=== PATIENT | female | born 1935 | race Caucasian/White ===

== ENCOUNTER 2017-12-03 08:27 | Outpatient (CLI) | payer MEDICARE ==
[2017-12-03] MEDS ORDERED: Gadobenate Dimeglumine 529 MG/1 ML (20ML VIAL) ONE (14:21)
== END 2017-12-03 08:28 | disposition home or self-care (01) ==
LOC: BICMRI 08:27
PROVIDERS: ATTEND Psychiatry & Neurology Neurology
DX: R27.0 Ataxia, unspecified (principal); I67.82 Cerebral ischemia
CPT/HCPCS: 70553; A9579

== ENCOUNTER 2018-12-14 08:39 | Inpatient (IN) | payer MEDICARE ==
[2018-12-14 10:28] LABS: #Eosinphils 0.1 thou/uL (0.0-0.7); #Lymphocytes 1.1 thou/uL (1.20-3.40); #Monocytes 0.7 thou/uL (0.11-0.59); #Neutrophils 13.1 thou/uL (1.40-6.50); %Basophils 0.1 % (0.0-1.0); %Eosinophils 0.5 % (0.0-10.0); %Lymphocytes 7.4 % (21.0-51.0); %Monocytes 4.8 % (0.0-10.0); %Neutrophils 87.3 % (42.0-75.0); Hemoglobin 10.5 g/dL (12.0-16.0); Mean Corpuscular HGB CONC 32.6 g/dL (32.0-36.0); Mean Corpuscular Volume 95.3 fL (78.0-98.0); Platelet Count 383 thou/uL (130-400); RBC Distribution Width 13.4 % (11.5-14.5); Red Blood Cell (RBC) Count 3.38 mill/uL (4.20-5.40)
--- NOTE | 2018-12-14 10:42 | RAD ---
SINGLE VIEW CHEST: HISTORY: Fall. Low oxygen saturation. COMPARISON: 11/14/2014 FINDINGS: A single view of the chest shows a normal sized cardiomediastinal silhouette. Air space opacity is s een in the left lung, consistent with left lower lobe pneumonia. No pleural effusion is seen. IMPRESSION: Left lower lobe pneumonia. POS: [facility]
[2018-12-14 10:53] LABS: ALT (SGPT) 30 U/L (8-55); AST (SGOT) 56 U/L (5-34); Alkaline Phosphatase 212 U/L (40-150); Anion Gap 16 mmol/L (10-20); BUN (Urea Nitrogen) 22 mg/dL (9.8-20.1); Bilirubin, Total 0.9 mg/dL (0.2-1.2); Calc. Creatinine Clearance 0 mL/min (70-130); Calcium 8.3 mg/dL (7.8-10.44); Carbon Dioxide 23 mmol/L (23-31); Chloride 100 mmol/L (98-107); Estimated GFR-MDRD 72; Glucose 98 mg/dL (83-110); Sodium 136 mmol/L (136-145)
[2018-12-14 10:56] LABS: Potassium 2.9 mmol/L (3.5-5.1)
[2018-12-14 11:35] LABS: Bilirubin Small (Negative); Blood, Urine Negative (Negative); Clarity CLOUDY (Clear); Glucose, Urine (Dipstick) Negative (Negative); Leukocyte Negative (Negative); Nitrite Negative (Negative); Protein, Urine (Dipstick) 100 mg/dL (Neg-Trace); Specific Gravity, Urine 1.025 (1.002-1.036)
[2018-12-14] MEDS ORDERED: Piperacillin/Tazobactam 4.5 GM VIAL ONE (11:35)
[2018-12-14] MEDS ORDERED: Azithromycin 500 MG VIAL ONE (11:36)
[2018-12-14 11:37] LABS: Bacteria/HPF None Seen HPF (None Seen); Pathc Cast-AUWi Flag 2.76 (0-2.49); Squamous Epithelial 21-50 HPF (0-3)
[2018-12-14 11:49] LABS: Hyaline Casts/LPF 0-3 HYALINE CAST LPF (0-3 Hyaline)
[2018-12-14 11:50] LABS: Manual Microscopic Reviewed? No Path Casts Seen
[2018-12-14] MEDS ORDERED: Vancomycin HCl 1 GM in Premix Bag 1 BAG IVPB SCH (12:00)
[2018-12-14] MEDS ORDERED: Pot Chloride/Pot Bicarb/Cit Ac 25 mEq Effervescent Tablet ONE (12:19)
[2018-12-14] MEDS ORDERED: Ondansetron ODT 4 MG TAB PO PRN (12:20)
[2018-12-14] MEDS ORDERED: Zolpidem Tartrate 5 MG TAB PO PRN (12:20)
--- NOTE | 2018-12-14 13:42 | HP ---
PRIMARY CARE PHYSICIAN: Dr. Satya Montague. Referred to the [facility] for sepsis. The patient was noted by caregiver to have O2 saturation in the 80s this morning. Her residential green building designer says she was short of breath last night. She has not had no cough. She had fever 3 days ago, which was diagnosed as the UTI and put on Cipro. PAST MEDICAL HISTORY: Pertinent for dyslipidemia, anxiety, depression, and Meniere disease. MEDICATIONS: 1. Atorvastatin 20 mg a day. 2. Citalopram 20 mg a day. 3. Meclizine 25 mg p.r.n. ALLERGIES: NO MEDICAL ALLERGIES. PAST SURGICAL HISTORY: 1. Hysterectomy. 2. Skin cancer on her nose, which required reconstructive surgery. FAMILY HISTORY: Multiple members on both sides of her family; mother, father, grandparents, and a sibling have coronary artery disease. The patient is . Full code status. Daughter, Eva Skaggs is surrogate decision maker. No tobacco. No alcohol. REVIEW OF SYSTEMS: GENERAL: She has fallen 3 times in the past 3 days. EYES: No double vision, blurred vision, flashing lights. EARS, NOSE, AND THROAT: No ear pain or drainage. No nasal bleeding. No trouble swallowing. No oral pain. CARDIAC: No chest pain, orthopnea, or paroxysmal nocturnal dyspnea. RESPIRATION: No cough, wheezing, or asthma. GASTROINTESTINAL: No nausea, vomiting, abdominal pain, diarrhea, or constipation. GENITOURINARY: She has a history of frequency of urination, dysuria. She has an appointment with a urologist later this week, apparently interstitial nephritis runs in the family. MUSCULOSKELETAL: No pain or swelling in her arms, legs. NEUROLOGICAL: No strokes, seizures, or focal weakness. PSYCHIATRIC: History of anxiety, depression, currently treated. SKIN: She has a contusion on her left upper arm from her fall last night. HEME/LYMPH: No tender or swollen lymph nodes in axilla, inguinal, or cervical area. No petechial or hemorrhage or hematomas noted. PHYSICAL EXAMINATION: GENERAL: She is alert, pleasant, and cooperative lady. VITAL SIGNS: Room air sat was 86%. She is now 99% on 2 L. Her blood pressure is 134/75, pulse 83, and respirations 22. HEAD, EYES, EARS, NOSE, AND THROAT: Revealed pupils are equal, round, and reactive to light. Extraocular movements are intact. Sclerae are white. Tympanic membranes clear. Nose clear. Oral mucous membranes are wet. Dental hygiene is good. NECK: Supple without jugular venous distention, adenopathy, thyromegaly, or bruits. CHEST: Clear to percussion. Right chest is clear to auscultation. Left chest has marked posterior rales from the base up to upper chest. HEART: Regular rate and rhythm. First and second heart sounds clear. No murmurs or gallops. ABDOMEN: Soft. Bowel sounds are normal. No hepatosplenomegaly. No mass. No rebound. No bruits. EXTREMITIES: Reveal no cyanosis, clubbing, or edema. Pulses; carotid, radial, femoral, and dorsalis pedis pulses intact and symmetric. SKIN: Does reveal 1 bruise on her left upper arm. Otherwise, warm, dry, and clear. LYMPHATIC SURVEY: No tender or swollen lymph nodes in axilla, inguinal cervical area. NEUROLOGICAL: Cranial nerves 2 through 12 are intact. Moves all extremities. Sensation intact. LABORATORY DATA: Chest x-ray, no cardiomegaly or CHF. She has an extensive left-sided infiltrate reviewed by me. No EKG is presented. CBC; white cell count 15.0 with absolute neutrophilia, hemoglobin 10.5, and platelet count 383,000. Urine shows scant white cells of 4.6 with a lot of epithelial cells, negative leukocyte esterase and negative nitrites, indicating no evidence of infection there. Her sodium was 136, potassium 2.9, chloride 100, CO2 of 23, BUN 22, creatinine 0.77 , AST 56, bilirubin 0.9, ALT 30, alk phos 212. Lactic acid was 1.2. ADMITTING DIAGNOSES: 1. No evidence for sepsis syndrome. 2. Left lower lung pneumonia. 3. Acute respiratory failure with hypoxemia. 4. Dyslipidemia. 5. Anxiety depression. 6. Hypokalemia. PLAN: Blood cultures have been drawn. Oxygen has been administered and the patient's O2 saturation is quite adequate on 2 L. She has been given multiple antibiotics in the emergency room including a Zithromax, vancomycin, and Zosyn for atypical outpatient community-acquired pneumonia. I think that cephalexin and azithromycin would be a much better choice. She will be continued on her atorvastatin and her citalopram, suspect she will need 3 days in the hospital. Job ID: [id number] [facility] HOSPITALDemarcus
[2018-12-14 14:54] VITALS: BMI 29.5
[2018-12-14] MEDS: cefTRIAXone\\ROCEPHIN 1 GM in Sodium Chloride 0.9% 100 ML IVPB SCH (16:05)
[2018-12-14] MEDS: Citalopram 20 MG TAB PO SCH (20:50)
[2018-12-14] MEDS: Atorvastatin Calcium 20 MG TAB PO SCH (20:50)
[2018-12-14] MEDS: Acetaminophen 325 MG TAB PO PRN (20:51)
[2018-12-14] MEDS ORDERED: Prevnar 13-Val Conj/PF 0.5 ML SYRINGE IM ONE (21:00)
[2018-12-15 05:30] LABS: #Eosinphils 0.3 thou/uL (0.0-0.7); #Lymphocytes 1.3 thou/uL (1.20-3.40); #Monocytes 0.7 thou/uL (0.11-0.59); #Neutrophils 12.1 thou/uL (1.40-6.50); %Basophils 0.2 % (0.0-1.0); %Lymphocytes 8.9 % (21.0-51.0); %Monocytes 5.1 % (0.0-10.0); %Neutrophils 83.8 % (42.0-75.0); Hemoglobin 10.5 g/dL (12.0-16.0); Mean Corpuscular HGB CONC 32.5 g/dL (32.0-36.0); Mean Corpuscular Hemoglobin 31.2 pg (27.0-31.0); Mean Corpuscular Volume 96.1 fL (78.0-98.0); Mean Platelet Volume 7.7 fL (7.4-10.4); Platelet Count 369 thou/uL (130-400); RBC Distribution Width 13.6 % (11.5-14.5); Red Blood Cell (RBC) Count 3.37 mill/uL (4.20-5.40); White Blood Cell (WBC) Count 14.5 thou/uL (4.8-10.8)
[2018-12-15 05:50] LABS: Anion Gap 16 mmol/L (10-20); BUN (Urea Nitrogen) 18 mg/dL (9.8-20.1); Calc. Creatinine Clearance 67 mL/min (70-130); Calcium 8.5 mg/dL (7.8-10.44); Carbon Dioxide 24 mmol/L (23-31); Chloride 100 mmol/L (98-107); Estimated GFR-MDRD 75; Glucose 101 mg/dL (83-110); Sodium 137 mmol/L (136-145)
[2018-12-15] MEDS: Enoxaparin Sodium 40 MG/0.4 ML SYRINGE SC SCH (09:01)
[2018-12-15] MEDS ORDERED: Potassium Chloride 20 MEQ TAB PO SCH (10:00)
--- NOTE | 2018-12-15 10:02 | PDOC.PN ---
- Subjective Encounter Start Date: 12/15/18 Encounter Start Time: 10:00 Subjective: some mild confusion about going home - Objective Resuscitation Status - Order Detail: 12/14/18 12:17 Resuscitation Status Routine Resuscitation Status: FULL: Full Resuscitation MAR Reviewed: Yes Vital Signs & Weight: Vital Signs (12 hours) Temp Pulse Resp BP Pulse Ox 12/15/18 09:12 93 L 12/15/18 08:17 98.6 F 108 H 20 122/70 93 L 12/15/18 05:42 94 L 12/15/18 05:08 97.9 F 108 H 20 161/84 H 12/15/18 00:00 98.1 F 96 20 118/74 92 L Weight Weight 161 lb 9.6 oz I&O: 12/14/18 12/15/18 12/16/18 06:59 06:59 06:59 Intake Total 620 Balance 620 Result Diagrams: 12/15/18 05:05 12/15/18 05:05 Phys Exam - Physical Examination Neck: no JVD Respiratory: clear to auscultation bilateral exc rales left post chest Cardiovascular: RRR, no significant murmur Gastrointestinal: soft, positive bowel sounds Musculoskeletal: no edema Dx/Plan (1) Acute respiratory failure with hypoxia Code(s): J96.01 - ACUTE RESPIRATORY FAILURE WITH HYPOXIA Status: Acute (2) PNA (pneumonia) Code(s): J18.9 - PNEUMONIA, UNSPECIFIED ORGANISM Status: Acute Qualifiers: Pneumonia type: due to Pneumococcus Laterality: left Lung location: lower lobe of lung Qualified Code(s): J13 - Pneumonia due to Streptococcus pneumoniae Comment: likelypneumococcus (3) Hypokalemia Code(s): E87.6 - HYPOKALEMIA Status: Acute (4) Dyslipidemia Code(s): E78.5 - HYPERLIPIDEMIA, UNSPECIFIED Status: Acute - Plan cont iv antibx -: cont O2 -: replace K+ * .
[2018-12-15] MEDS: cefTRIAXone\\ROCEPHIN 1 GM in Sodium Chloride 0.9% 100 ML IVPB SCH (12:01)
[2018-12-15] MEDS: Azithromycin 500 MG in Sodium Chloride 0.9% 250 ML 250 ML IVPB SCH (12:01)
[2018-12-15] MEDS: Atorvastatin Calcium 20 MG TAB PO SCH (20:33)
[2018-12-15] MEDS: Citalopram 20 MG TAB PO SCH (20:33)
[2018-12-16] MEDS: Enoxaparin Sodium 40 MG/0.4 ML SYRINGE SC SCH (08:13)
--- NOTE | 2018-12-16 11:32 | PDOC.PN ---
- Subjective Encounter Start Date: 12/16/18 Encounter Start Time: 11:31 Subjective: much improved, no fever, chills - Objective Resuscitation Status - Order Detail: 12/14/18 12:17 Resuscitation Status Routine Resuscitation Status: FULL: Full Resuscitation MAR Reviewed: Yes Vital Signs & Weight: Vital Signs (12 hours) Temp Pulse Resp BP Pulse Ox 12/16/18 08:09 99.4 F 87 20 147/77 H 99 12/16/18 08:00 87 L Weight Weight 161 lb 9.6 oz I&O: 12/15/18 12/16/18 12/17/18 06:59 06:59 06:59 Intake Total 620 970 Balance 620 970 Result Diagrams: 12/15/18 05:05 12/15/18 05:05 Phys Exam - Physical Examination Neck: no JVD bilat lower lobe rales, L>R Cardiovascular: RRR, no significant murmur Gastrointestinal: soft, positive bowel sounds Musculoskeletal: no edema Dx/Plan (1) Acute respiratory failure with hypoxia Code(s): J96.01 - ACUTE RESPIRATORY FAILURE WITH HYPOXIA Status: Acute (2) PNA (pneumonia) Code(s): J18.9 - PNEUMONIA, UNSPECIFIED ORGANISM Status: Acute Qualifiers: Pneumonia type: due to Pneumococcus Laterality: left Lung location: lower lobe of lung Qualified Code(s): J13 - Pneumonia due to Streptococcus pneumoniae Comment: likelypneumococcus (3) Hypokalemia Code(s): E87.6 - HYPOKALEMIA Status: Acute (4) Dyslipidemia Code(s): E78.5 - HYPERLIPIDEMIA, UNSPECIFIED Status: Acute - Plan cont iv antibx, may deescalate to po omnicef 12/17 -: poss discharge 12/17 * .
[2018-12-16] MEDS: Azithromycin 500 MG in Sodium Chloride 0.9% 250 ML 250 ML IVPB SCH (12:17)
[2018-12-16] MEDS: cefTRIAXone\\ROCEPHIN 1 GM in Sodium Chloride 0.9% 100 ML IVPB SCH (13:01)
[2018-12-16] MEDS ORDERED: Potassium Chloride 20 MEQ TAB PO SCH (15:30)
[2018-12-16] MEDS: Citalopram 20 MG TAB PO SCH (20:30)
[2018-12-16] MEDS: Acetaminophen 325 MG TAB PO PRN (20:30)
[2018-12-16] MEDS: Atorvastatin Calcium 20 MG TAB PO SCH (20:30)
[2018-12-17 05:52] LABS: #Basophils 0.1 thou/uL (0.0-0.2); #Eosinphils 0.8 thou/uL (0.0-0.7); #Lymphocytes 1.7 thou/uL (1.20-3.40); #Monocytes 0.7 thou/uL (0.11-0.59); #Neutrophils 8.9 thou/uL (1.40-6.50); %Basophils 0.4 % (0.0-1.0); %Eosinophils 6.6 % (0.0-10.0); %Lymphocytes 13.9 % (21.0-51.0); %Monocytes 5.9 % (0.0-10.0); %Neutrophils 73.2 % (42.0-75.0); Hemoglobin 10.7 g/dL (12.0-16.0); Mean Corpuscular HGB CONC 30.9 g/dL (32.0-36.0); Mean Corpuscular Hemoglobin 30.9 pg (27.0-31.0); Mean Platelet Volume 6.9 fL (7.4-10.4); Platelet Count 418 thou/uL (130-400); RBC Distribution Width 13.9 % (11.5-14.5); Red Blood Cell (RBC) Count 3.46 mill/uL (4.20-5.40); White Blood Cell (WBC) Count 12.2 thou/uL (4.8-10.8)
[2018-12-17 06:14] LABS: Anion Gap 16 mmol/L (10-20); BUN (Urea Nitrogen) 22 mg/dL (9.8-20.1); Calc. Creatinine Clearance 73 mL/min (70-130); Calcium 8.8 mg/dL (7.8-10.44); Carbon Dioxide 19 mmol/L (23-31); Chloride 107 mmol/L (98-107); Estimated GFR-MDRD 83; Glucose 97 mg/dL (83-110); Potassium 4.1 mmol/L (3.5-5.1); Sodium 138 mmol/L (136-145)
[2018-12-17] MEDS: Enoxaparin Sodium 40 MG/0.4 ML SYRINGE SC SCH (07:52)
[2018-12-17] MEDS: Potassium Chloride 20 MEQ TAB PO SCH (07:53)
[2018-12-17] MEDS: Azithromycin 500 MG in Sodium Chloride 0.9% 250 ML 250 ML IVPB SCH (11:09)
[2018-12-17] MEDS ORDERED: Cefdinir 300 MG CAP PO SCH (12:00)
--- NOTE | 2018-12-17 15:32 | PDOC.PN ---
- Subjective Encounter Start Date: 12/17/18 Encounter Start Time: 09:40 Pt seen for followup re:acute hypoxic respiratory failure. Feels better. Cough +, no sputum - Objective Resuscitation Status - Order Detail: 12/14/18 12:17 Resuscitation Status Routine Resuscitation Status: FULL: Full Resuscitation MAR Reviewed: Yes Vital Signs & Weight: Vital Signs (12 hours) Temp Pulse Resp BP Pulse Ox 12/17/18 12:50 97.0 F L 96 20 140/80 94 L 12/17/18 12:32 97 12/17/18 11:45 95 12/17/18 08:09 98.7 F 93 20 135/82 97 12/17/18 07:29 97 Weight Weight 161 lb 9.6 oz I&O: 12/16/18 12/17/18 12/18/18 06:59 06:59 06:59 Intake Total 970 850 Balance 970 850 Result Diagrams: 12/17/18 05:37 12/17/18 05:37 Additional Labs: labs reviewed by me Phys Exam - Physical Examination Constitutional: NAD HEENT: moist MMs Neck: supple Respiratory: clear to auscultation bilateral Cardiovascular: RRR Gastrointestinal: soft Neurological: moves all 4 limbs Psychiatric: normal affect Dx/Plan (1) Acute respiratory failure with hypoxia Code(s): J96.01 - ACUTE RESPIRATORY FAILURE WITH HYPOXIA Status: Acute Comment: secondary to pneumonia. try to wean off of supplemental oxygen. 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 Review of Systems - Review of Systems Respiratory: Cough, Dry. negative: Shortness of Breath, Hemoptysis, SOB with Excertion, Pleuritic Pain, Sputum, Wheezing Cardiovascular: negative: chest pain, palpitations, orthopnea, paroxysmal nocturnal dyspnea, edema, light headedness - Medications/Allergies Allergies/Adverse Reactions: Allergies Allergy/AdvReac Type Severity Reaction Status Date / Time No Known Allergies Allergy Unverified 12/14/18 11:42 Medications: Current Medications Acetaminophen (Tylenol) 650 mg PO Q4H PRN PRN Reason: Headache/Fever/Mild Pain (1-3) Last Admin: 12/16/18 20:30 Dose: 650 mg Atorvastatin Calcium (Lipitor) 20 mg PO HS [facility] Last Admin: 12/16/18 20:30 Dose: 20 mg Cefdinir (Omnicef) 300 mg PO BID [facility] Citalopram Hydrobromide (Celexa) 20 mg PO HS [facility] Last Admin: 12/16/18 20:30 Dose: 20 mg Enoxaparin Sodium (Lovenox) 40 mg SC 0900 [facility] Last Admin: 12/17/18 07:52 Dose: 40 mg Ondansetron HCl (Zofran Odt) 4 mg PO Q6H PRN PRN Reason: Nausea/Vomiting Potassium Chloride (K-Dur) 40 meq PO QAM-WM [facility] Last Admin: 12/17/18 07:53 Dose: 40 meq Zolpidem Tartrate (Ambien) 5 mg PO HSPRN PRN PRN Reason: Insomnia Last Admin: 12/14/18 20:51 Dose: 5 mg
[2018-12-17] MEDS ORDERED: Benzonatate 100 MG CAP PO SCH (16:30)
--- NOTE | 2018-12-17 18:16 | EKG ---
Test Reason : Blood Pressure : / mmHG Vent. Rate : 101 BPM Atrial Rate : 101 BPM P-R Int : 154 ms QRS Dur : 080 ms QT Int : 386 ms P-R-T Axes : 023 -20 030 degrees QTc Int : 500 ms Sinus tachycardia with Premature supraventricular complexes Voltage criteria for left ventricular hypertrophy Abnormal ECG Confirmed by KIANA RANDALL, NILDA ([id number]), news video editor JAVIER QUIGLEY ([id number]) on 12/17/2018 6:16:25 PM Referred By: Confirmed By:NILDA BRUNO MD
[2018-12-17] MEDS: Atorvastatin Calcium 20 MG TAB PO SCH (20:03)
[2018-12-17] MEDS: Cefdinir 300 MG CAP PO SCH (20:03)
[2018-12-17] MEDS: Benzonatate 100 MG CAP PO SCH (20:03)
[2018-12-17] MEDS: Citalopram 20 MG TAB PO SCH (20:04)
[2018-12-18] MEDS: Potassium Chloride 20 MEQ TAB PO SCH (07:55)
[2018-12-18] MEDS: Benzonatate 100 MG CAP PO SCH (07:55)
[2018-12-18] MEDS: Cefdinir 300 MG CAP PO SCH (07:56)
[2018-12-18] MEDS: Enoxaparin Sodium 40 MG/0.4 ML SYRINGE SC SCH (07:56)
--- NOTE | 2018-12-18 11:54 | DIS ---
DATE OF ADMISSION: 12/14/2018 DATE OF DISCHARGE: 12/18/2018 PRIMARY CARE PROVIDER: Satya Montague, DISCHARGE DIAGNOSES: 1. Acute hypoxic respiratory failure. 2. Pneumonia, likely secondary to Streptococcus pneumoniae. 3. Hypokalemia. COMORBIDITIES: Mild depression, stable. CONDITION OF PATIENT ON THE DAY OF DISCHARGE: Stable. I assessed Ms. Berry on the day of discharge. She denies any chest pain or shortness of breath. Cough is better. Vital signs are stable. S1 and S2 are heard, regular. Lungs are clear to auscultation bilaterally. DISCHARGE MEDICATIONS: 1. Lipitor 20 mg at bedtime. 2. Celexa 20 mg at bedtime. 3. Dimenhydrinate 50 mg at bedtime. 4. Benzonatate 100 mg three times a day as needed. 5. Cefdinir 300 mg 2 times a day. HOSPITAL COURSE: Ms. Berry is a pleasant 83-year-old lady, who was admitted to [facility] on December 14, 2018 for pneumonia. Please refer to Dr. Manuel' history and physical note for further details. Chest x-ray at the time of admission showed left lower lobe pneumonia. She was initially treated with intravenous antibiotics, subsequently stepped down to oral antibiotics. She improved clinically and is being discharged home in a stable condition. Arrangements are being made to have home health for physical therapy and nursing through [facility]. On December 17, she had sodium 138, potassium 4.1, creatinine 0.68. White count 12,200, hemoglobin 10.7, and platelet count 418,000. Many thanks for allowing me to participate in your patient's care. Please feel free to contact me with any questions or concerns. Please note that she had a normal TSH during this hospitalization. DISCHARGE DESTINATION: Home with home health. TOTAL AMOUNT OF TIME SPENT COORDINATING THIS DISCHARGE: 32 minutes. Job ID: [id number]
[2018-12-18 14:17] VITALS: BP 120/72; TEMP 97.7
== END 2018-12-18 14:41 | disposition home health service (06) | DRG 193 ==
LOC: ERS 08:39 → T4-B 11:43
PROVIDERS: ADMIT Internal Medicine; ATTEND Internal Medicine
DX: J13 Pneumonia due to Streptococcus pneumoniae (principal); J96.01 Acute respiratory failure with hypoxia; E78.5 Hyperlipidemia, unspecified; F41.9 Anxiety disorder, unspecified; F32.9 Major depressive disorder, single episode, unspecified; E87.6 Hypokalemia; Z91.81 History of falling; Z79.899 Other long term (current) drug therapy
CPT/HCPCS: 36415; 71045; 80048; 80053; 81003; 81015; 83605; 84443; 85025; 87040; 87086; 93005; 96365; 96367; 99213; G0463; J0456; J0696; J1650; J2543; J7050

== ENCOUNTER 2018-12-26 14:12 | Outpatient (CLI) | payer MEDICARE ==
--- NOTE | 2018-12-26 15:58 | RAD ---
LUMBAR SPINE TWO VIEWS: 12/26/18 HISTORY: Acute left sided low back pain following multiple falls. COMPARISON: 04/26/13. FINDINGS: Heterogeneous bone demineralization with mild vertical height loss of L2 and L1 and T12 with vertebro plasty changes at T11. Generalized disc osteophytosis. Minimal bone demineralization. IMPRESSION: Lumbar spondylosis with mild vertical height loss of T12, L1 and L2 but overall stable. Vertebroplast y changes at T11. No significant new process. POS: [facility]
--- NOTE | 2018-12-26 15:59 | RAD ---
LEFT HIP TWO VIEWS: 12/26/18 HISTORY: Left hip pain. 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 POS: [facility]
== END 2018-12-26 14:13 | disposition home or self-care (01) ==
LOC: SCSRAD 14:12
PROVIDERS: ATTEND Family Medicine
DX: M25.552 Pain in left hip (principal); M16.12 Unilateral primary osteoarthritis, left hip; M47.816 Spondylosis without myelopathy or radiculopathy, lumbar region; Z98.890 Other specified postprocedural states
CPT/HCPCS: 72100

== ENCOUNTER 2023-04-28 23:08 | Emergency (ER) | payer MEDICARE, OTHER ==
[2023-04-29 00:25] LABS: #Basophils 0.1 thou/uL (0.0-0.2); #Eosinphils 0.2 thou/uL (0.0-0.7); #Monocytes 0.8 thou/uL (0.11-0.59); #Neutrophils 10.1 thou/uL (1.40-6.50); %Basophils 0.6 % (0.0-1.0); %Eosinophils 1.5 % (0.0-10.0); %Lymphocytes 9.4 % (21.0-51.0); %Monocytes 6.4 % (0.0-10.0); %Neutrophils 81.2 % (42.0-75.0); Hemoglobin 11.8 g/dL (12.0-16.0); Mean Corpuscular HGB CONC 31.8 g/dL (32.0-36.0); Mean Corpuscular Hemoglobin 30.3 pg (27.0-31.0); Mean Corpuscular Volume 95.4 fl (78.0-98.0); Mean Platelet Volume 10.7 fL (7.4-10.4); Platelet Count 291 10x3/uL (130-400); RBC Distribution Width 14.9 % (11.5-14.5); Red Blood Cell (RBC) Count 3.89 mill/uL (4.20-5.40); White Blood Cell (WBC) Count 12.4 10x3/uL (4.8-10.8)
[2023-04-29 00:31] LABS: Bilirubin Negative (Negative); Blood, Urine Trace (Negative); Glucose, Urine (Dipstick) Negative (Negative); Ketone, Urine Negative (Negative); Leukocyte Large (Negative); Nitrite Positive (Negative); Protein, Urine (Dipstick) Negative (Neg-Trace); Specific Gravity, Urine 1.025 (1.005-1.030); Urobilinogen 0.2 mg/dL (Less than 2); pH, Urine 5.5 (5.0-9.0)
[2023-04-29 00:56] LABS: ALT (SGPT) 20 U/L (8-55); AST (SGOT) 25 U/L (5-34); Albumin 3.5 g/dL (3.4-4.8); Alkaline Phosphatase 130 U/L (40-110); Anion Gap 17 mmol/L (10-20); BUN (Urea Nitrogen) 21 mg/dL (9.8-20.1); Bilirubin, Total 0.3 mg/dL (0.2-1.2); Calc. Creatinine Clearance 0 mL/min (70-130); Calcium 8.9 mg/dL (7.8-10.44); Carbon Dioxide 20 mmol/L (23-31); Chloride 103 mmol/L (98-107); Estimated GFR 55; Glucose 150 mg/dL (83-110); Potassium 4.1 mmol/L (3.5-5.1); Protein, Total 7.5 g/dL (5.8-8.1); Sodium 136 mmol/L (136-145)
[2023-04-29 01:06] LABS: Clarity Hazy (Clear)
[2023-04-29 01:11] LABS: Bacteria/HPF 3+ HPF (None Seen); CAUTI Indications for Culture Alt mental st,lethar; WBC/HPF Greater than 50 HPF (0-3)
[2023-04-29 01:12] LABS: Urine Culture Reflex Yes Yes
== END 2023-04-29 04:15 ==
LOC: ERS 23:08
DX: N39.0 Urinary tract infection, site not specified (principal); D72.829 Elevated white blood cell count, unspecified
CPT/HCPCS: 36415; 70450; 72125; 80053; 81001; 85025; 87077; 87086; 87186; 93005

== ENCOUNTER 2024-01-18 19:20 | Inpatient (IN) | payer MEDICARE, OTHER ==
[2024-01-18 21:33] LABS: #Basophils 0.1 thou/uL (0.0-0.2); #Eosinphils 0.1 thou/uL (0.0-0.7); #Monocytes 1.1 thou/uL (0.11-0.59); %Basophils 0.6 % (0.0-1.0); %Eosinophils 0.7 % (0.0-10.0); %Lymphocytes 11.8 % (21.0-51.0); %Monocytes 10.8 % (0.0-10.0); %Neutrophils 75.4 % (42.0-75.0); Hematocrit 38.1 % (36.0-47.0); Hemoglobin 12.6 g/dL (12.0-16.0); Mean Corpuscular HGB CONC 33.1 g/dL (32.0-36.0); Mean Corpuscular Hemoglobin 30.3 pg (27.0-31.0); Mean Corpuscular Volume 91.6 fl (78.0-98.0); Mean Platelet Volume 10.3 fL (7.4-10.4); Platelet Count 324 10x3/uL (130-400); RBC Distribution Width 14.1 % (11.5-14.5); Red Blood Cell (RBC) Count 4.16 mill/uL (4.20-5.40); White Blood Cell (WBC) Count 10.6 10x3/uL (4.8-10.8)
[2024-01-18 21:50] LABS: Troponin I 0.013 ng/mL (< 0.028)
[2024-01-18 21:52] LABS: ALT (SGPT) 13 U/L (8-55); AST (SGOT) 19 U/L (5-34); Albumin 3.7 g/dL (3.4-4.8); Alkaline Phosphatase 110 U/L (40-110); Anion Gap 16 mmol/L (10-20); BUN (Urea Nitrogen) 18 mg/dL (9.8-20.1); Bilirubin, Total 0.8 mg/dL (0.2-1.2); Calc. Creatinine Clearance 0 mL/min (70-130); Carbon Dioxide 25 mmol/L (23-31); Chloride 98 mmol/L (98-107); Estimated GFR 40; Globulin 3.7 g/dL (2.4-3.5); Glucose 113 mg/dL (83-110); Potassium 4.1 mmol/L (3.5-5.1); Protein, Total 7.4 g/dL (5.8-8.1); Sodium 135 mmol/L (136-145)
[2024-01-18] MEDS ORDERED: predniSONE 20 MG TAB ONE (22:35)
[2024-01-18] MEDS ORDERED: Azithromycin 500 MG VIAL ONE (22:35)
[2024-01-18] MEDS ORDERED: Magnesium 2 GM/50 ML BAG (IN WATER) ONE (22:35)
[2024-01-18] MEDS ORDERED: cefTRIAXone (ROCEPHIN) 1 GM VIAL ONE (22:43)
[2024-01-18] MEDS ORDERED: Sodium Chloride 0.9% 100 ML ONE (22:43)
[2024-01-18] MEDS ORDERED: Ipratropium/Albuterol 3 ML NEB ONE (22:55)
[2024-01-19] MEDS ORDERED: Ipratropium/Albuterol 3 ML NEB NEB PRN (00:23)
[2024-01-19] MEDS ORDERED: Acetaminophen 650 MG Suppository PR PRN (00:23)
[2024-01-19] MEDS ORDERED: Ondansetron ODT 4 MG TAB PO PRN (00:23)
[2024-01-19] MEDS ORDERED: Ondansetron PF 4 MG/2 ML Vial IVP PRN (00:23)
[2024-01-19 02:01] VITALS: BMI 31.5
[2024-01-19 04:03] LABS: #Monocytes 0.2 thou/uL (0.11-0.59); %Basophils 0.5 % (0.0-1.0); %Lymphocytes 6.4 % (21.0-51.0); %Monocytes 2.3 % (0.0-10.0); %Neutrophils 90.2 % (42.0-75.0); Hematocrit 36.2 % (36.0-47.0); Hemoglobin 11.7 g/dL (12.0-16.0); Mean Corpuscular HGB CONC 32.3 g/dL (32.0-36.0); Mean Corpuscular Hemoglobin 29.9 pg (27.0-31.0); Mean Corpuscular Volume 92.6 fl (78.0-98.0); Platelet Count 294 10x3/uL (130-400); RBC Distribution Width 14.1 % (11.5-14.5); Red Blood Cell (RBC) Count 3.91 mill/uL (4.20-5.40); White Blood Cell (WBC) Count 8.9 10x3/uL (4.8-10.8)
[2024-01-19 04:28] LABS: Anion Gap 14 mmol/L (10-20); BUN (Urea Nitrogen) 18 mg/dL (9.8-20.1); Calc. Creatinine Clearance 44 mL/min (70-130); Calcium 8.4 mg/dL (7.8-10.44); Carbon Dioxide 24 mmol/L (23-31); Chloride 101 mmol/L (98-107); Estimated GFR 47; Glucose 164 mg/dL (83-110); Sodium 135 mmol/L (136-145)
[2024-01-19] MEDS: Famotidine 20 MG TAB PO SCH (08:53)
[2024-01-19] MEDS: predniSONE 20 MG TAB PO SCH (08:53)
[2024-01-19] MEDS: Doxycycline 100 MG CAP PO SCH (08:53)
[2024-01-19] MEDS: Famotidine/PF 20 mg/2ml Vial SLOW IVP SCH (08:54)
[2024-01-19] MEDS: cefTRIAXone\\ROCEPHIN 1 GM in Sodium Chloride 0.9% 100 ML IVPB SCH (08:56)
[2024-01-19] MEDS: Polyethylene Glycol 3350 17 GM Packet PO SCH (12:58)
[2024-01-19] MEDS: Melatonin 3 MG TAB PO SCH (20:23)
[2024-01-19] MEDS: QUEtiapine 25 MG TAB PO SCH (20:23)
[2024-01-19] MEDS: Donepezil HCl 10 MG TAB PO SCH (20:23)
[2024-01-19] MEDS: Acetaminophen 325 MG TAB PO PRN (20:38)
[2024-01-19 22:25] LABS: Bacteria/HPF 1+ HPF (None Seen); Bilirubin Negative (Negative); Blood, Urine Negative (Negative); CAUTI Indications for Culture Alt mental st,lethar; Clarity Clear (Clear); Glucose, Urine (Dipstick) Normal (Negative); Ketone, Urine Negative (Negative); Leukocyte 500 Leu/uL (Negative); Nitrite Negative (Negative); Protein, Urine (Dipstick) Negative (Neg-Trace); Specific Gravity, Urine 1.011 (1.002-1.036); Squamous Epithelial 0-3 HPF (0-3); Urobilinogen Normal mg/dL (Less than 2); WBC/HPF 21-50 HPF (0-3); pH, Urine 6.5 (5.0-9.0)
[2024-01-19 22:27] LABS: Urine Culture Reflex Yes Yes
[2024-01-20] MEDS: Citalopram 20 MG TAB PO SCH (08:57)
[2024-01-20] MEDS: Famotidine 20 MG TAB PO SCH (08:57)
[2024-01-20] MEDS: Famotidine/PF 20 mg/2ml Vial SLOW IVP SCH (08:58)
[2024-01-21 18:21] VITALS: BP 119/57; TEMP 98
== END 2024-01-21 20:34 | DRG 193 ==
LOC: ERS 19:20 → T4-B 23:35
PROVIDERS: ADMIT Student in an Organized Health Care Education/Training Program; ATTEND Internal Medicine
DX: J18.9 Pneumonia, unspecified organism (principal); U07.1 COVID-19; N17.9 Acute kidney failure, unspecified; N39.0 Urinary tract infection, site not specified; J40 Bronchitis, not specified as acute or chronic; J43.9 Emphysema, unspecified; E66.9 Obesity, unspecified; F03.90 Unspecified dementia, unspecified severity, without behavioral disturbance, psychotic disturbance, mood disturbance, and anxiety; E78.5 Hyperlipidemia, unspecified; R27.0 Ataxia, unspecified; Z90.710 Acquired absence of both cervix and uterus; Z87.891 Personal history of nicotine dependence; Z79.899 Other long term (current) drug therapy; Z79.82 Long term (current) use of aspirin; Z68.31 Body mass index [BMI] 31.0-31.9, adult
CPT/HCPCS: 36415; 71045; 80048; 80053; 81001; 83605; 83880; 84484; 85025; 87040; 87077; 87086; 87149; 87635; 93005; 96365; J0456; J0696; J3475; J3490; J7512; J7620